=== PATIENT | female | born 1980 | race Caucasian/White ===

== ENCOUNTER 2016-10-23 18:48 | Emergency (ER) | payer OTHER ==
[~2016-10-23] VITALS: Ht 154.9 cm; Wt 59.0 kg
[~2016-10-23 18:48] MED LIST: CORTIZONE-1028 GM TP; ELIMITE60 GM TP; IBUPROFEN 600600 M1 PO; NORCO 5-325 TA1 EACH PO; TROKENDI XR100 MG PO; VALIUM2 MG PO
[2016-10-23] MEDS ORDERED: ZONISAMIDE 100100 M1 PO (19:01)
[2016-10-23] MEDS ORDERED: ZOLOFT50 MG PO (19:02)
[2016-10-23] MEDS ORDERED: PREDNISONE 20 M20 MG PO (19:49)
[2016-10-23 20:14] VITALS: BP 121/81
== END 2016-10-23 20:15 | disposition home or self-care (01) ==
LOC: ER 18:48
DX: R21 Rash and other nonspecific skin eruption (principal); F32.9 Major depressive disorder, single episode, unspecified; F41.9 Anxiety disorder, unspecified; F17.210 Nicotine dependence, cigarettes, uncomplicated; F15.10 Other stimulant abuse, uncomplicated; Z88.0 Allergy status to penicillin

== ENCOUNTER 2016-11-30 10:19 | Emergency (ER) | payer OTHER ==
[~2016-11-30] VITALS: Ht 154.9 cm; Wt 63.5 kg
[~2016-11-30 10:19] MED LIST changes: +PREDNISONE 20 M20 MG PO; +ZOLOFT50 MG PO; +ZONISAMIDE 100100 M1 PO
[2016-11-30] MEDS ORDERED: MOBIC15 MG PO (11:44)
[2016-11-30] MEDS ORDERED: KEFLEX500 MG PO (11:44)
[2016-11-30] MEDS ORDERED: DOXYCYCLINE 10100 MG PO (12:02)
[2016-11-30 12:13] VITALS: BP 109/72
== END 2016-11-30 12:14 | disposition home or self-care (01) ==
LOC: ER 10:19
DX: L03.115 Cellulitis of right lower limb (principal); F41.9 Anxiety disorder, unspecified; F32.9 Major depressive disorder, single episode, unspecified; F17.210 Nicotine dependence, cigarettes, uncomplicated; Z88.0 Allergy status to penicillin

== ENCOUNTER 2017-05-12 12:14 | Emergency (ER) | payer OTHER ==
[~2017-05-12] VITALS: Ht 154.9 cm; Wt 81.7 kg
[~2017-05-12 12:14] MED LIST changes: +DOXYCYCLINE 10100 MG PO; +KEFLEX500 MG PO; +MOBIC15 MG PO
[2017-05-12] MEDS ORDERED: ABILIFY10 MG PO (12:17)
[2017-05-12] MEDS ORDERED: CELEXA40 MG PO (12:17)
[2017-05-12] MEDS ORDERED: ZONEGRAN 25 MG25 M1 PO (12:18)
[2017-05-12] MEDS ORDERED: CYCLOBENZAPRINE5 MG PO (14:31)
[2017-05-12] MEDS ORDERED: PREDNISONE 20 M20 MG PO (14:31)
[2017-05-12] MEDS ORDERED: MOBIC7.5 MG PO (14:31)
== END 2017-05-12 14:50 | disposition home or self-care (01) ==
LOC: ER 12:14
DX: M54.12 Radiculopathy, cervical region (principal); R20.2 Paresthesia of skin; M25.512 Pain in left shoulder; F41.9 Anxiety disorder, unspecified; F32.9 Major depressive disorder, single episode, unspecified; Z88.0 Allergy status to penicillin; F17.210 Nicotine dependence, cigarettes, uncomplicated

== ENCOUNTER → 2017-06-23 | Outpatient (CLI) | payer OTHER ==
[~2017-06-23] MED LIST changes: +ABILIFY10 MG PO; +CELEXA40 MG PO; +CYCLOBENZAPRINE5 MG PO; +MOBIC7.5 MG PO; +ZONEGRAN 25 MG25 M1 PO
== END ==
LOC: MRI 10:12 → EDSTATUS 13:33 → MRI 14:51
DX: M47.22 Other spondylosis with radiculopathy, cervical region (principal); M48.02 Spinal stenosis, cervical region; M25.78 Osteophyte, vertebrae

== ENCOUNTER 2017-12-22 08:48 | Emergency (ER) | payer OTHER ==
[~2017-12-22] VITALS: Ht 154.9 cm; Wt 79.4 kg
[2017-12-22 09:08] LABS: URINE BILIRUBIN NEGATIVE (Negative); URINE BLOOD TRACE (Negative); URINE CLARITY CLEAR; URINE COLOR YELLOW; URINE GLUCOSE-RANDOM* NEGATIVE (Negative); URINE KETONES NEGATIVE (Negative); URINE LEUKOCYTES-REFLEX NEGATIVE (Negative); URINE NITRITE-REFLEX NEGATIVE (Negative); URINE PROTEIN (DIPSTICK) TRACE (Negative); URINE SPECIFIC GRAVITY >= 1.030 (1.005-1.035); URINE UROBILINOGEN 0.2 E.U./dl (0.2-1.0)
[2017-12-22 09:15] LABS: ABSOLUTE NEUTROPHILS 4.5 thou/uL (1.4-8.2); BASOPHILS 0.6 % (0.0-2.0); EOSINOPHILS 2.3 % (0.0-3.0); HEMATOCRIT 38.9 % (37.0-47.0); HEMOGLOBIN 13.8 gm/dL (12.0-15.0); LYMPHOCYTES 37.5 % (24.0-44.0); MCH 33.2 pg (26.0-34.0); MCHC 35.4 g/dL (28.0-37.0); MCV 93.7 fL (80.0-100.0); MONOCYTES 5.6 % (1.0-8.0); PLATELET COUNT 333 thou/uL (150-400); RBC 4.15 mil/uL (4.20-5.00); RDW 13.1 % (10.5-14.5); WBC 8.4 thou/uL (4.0-11.0)
[2017-12-22 09:21] LABS: AMP/METHAMP Negative (Negative); BARBITURATES Negative (Negative); BENZODIAZEPINES Negative (Negative); COCAINE Negative (Negative); METHADONE Negative (Negative); OPIATES Negative (Negative); PCP Negative (Negative)
[2017-12-22 09:23] LABS: CALCIUM 9.3 mg/dL (8.5-10.1); CREATININE 0.8 mg/dL (0.6-1.0); POTASSIUM 3.6 mmol/L (3.5-5.1)
[2017-12-22 09:39] VITALS: BP 110/66
== END 2017-12-22 09:48 | disposition home or self-care (01) ==
LOC: ER 08:48
PROVIDERS: Physician Assistant
DX: R56.9 Unspecified convulsions (principal); Z91.14 Patient's other noncompliance with medication regimen; F17.210 Nicotine dependence, cigarettes, uncomplicated; F32.9 Major depressive disorder, single episode, unspecified; F41.9 Anxiety disorder, unspecified; Z88.0 Allergy status to penicillin

== ENCOUNTER 2020-04-01 11:47 | Emergency (ER) | payer OTHER ==
[~2020-04-01] VITALS: Ht 154.9 cm; Wt 74.4 kg
[2020-04-01] MEDS ORDERED: BRIVIACT50 MG PO (12:42)
[2020-04-01 13:09] LABS: URINE BILIRUBIN NEGATIVE (Negative); URINE BLOOD NEGATIVE (Negative); URINE CLARITY CLEAR; URINE COLOR YELLOW; URINE GLUCOSE-RANDOM* NEGATIVE (Negative); URINE KETONES NEGATIVE (Negative); URINE LEUKOCYTES-REFLEX NEGATIVE (Negative); URINE NITRITE-REFLEX NEGATIVE (Negative); URINE PROTEIN (DIPSTICK) 1+ (Negative); URINE SPECIFIC GRAVITY 1.015 (1.005-1.035); URINE UROBILINOGEN 0.2 E.U./dl (0.2-1.0)
[2020-04-01 13:17] LABS: AMP/METHAMP Negative (Negative); BARBITURATES Negative (Negative); BENZODIAZEPINES Negative (Negative); COCAINE Negative (Negative); METHADONE Negative (Negative); OPIATES Negative (Negative); PCP Negative (Negative)
[2020-04-01 13:21] LABS: MUCUS 0-3 Light strn/LPF (None Seen); SQUAMOUS 0-3 Few /LPF (0-3)
[2020-04-01 13:22] LABS: CASTS None Seen /LPF (None Seen); CRYSTALS None Seen /LPF (None Seen)
[2020-04-01 13:23] LABS: BACTERIA-REFLEX 1-9 Few /HPF (None Seen); URINE RBC 0-2 Rare /HPF (0-2); URINE WBC-REFLEX 0-5 Rare /HPF (0-5)
[2020-04-01 13:27] LABS: ABSOLUTE NEUTROPHILS 9.8 thou/uL (1.4-8.2); BASOPHILS 0.5 % (0.0-2.0); EOSINOPHILS 0.6 % (0.0-3.0); HEMATOCRIT 41.8 % (37.0-47.0); HEMOGLOBIN 13.9 gm/dL (12.0-15.0); LYMPHOCYTES 17.6 % (24.0-44.0); MCHC 33.2 g/dL (28.0-37.0); MCV 96.6 fL (80.0-100.0); MONOCYTES 5.5 % (1.0-8.0); PLATELET COUNT 361 thou/uL (150-400); POLYS 75.8 % (36.0-66.0); RBC 4.32 mil/uL (4.20-5.00); RDW 13.2 % (10.5-14.5); WBC 12.9 thou/uL (4.0-11.0)
[2020-04-01 13:36] LABS: CALCIUM 9.8 mg/dL (8.5-10.1); CREATININE 0.8 mg/dL (0.6-1.0); POTASSIUM 4.3 mmol/L (3.5-5.1)
[2020-04-01 14:37] VITALS: BP 118/83
== END 2020-04-01 14:37 | disposition home or self-care (01) ==
LOC: ER 11:47
PROVIDERS: Nurse Practitioner
DX: R56.9 Unspecified convulsions (principal); F17.210 Nicotine dependence, cigarettes, uncomplicated; Z79.899 Other long term (current) drug therapy; Z88.0 Allergy status to penicillin

== ENCOUNTER → 2020-04-23 | Outpatient (CLI) | payer OTHER ==
[~2020-04-23] MED LIST changes: +BRIVIACT50 MG PO
--- NOTE | 2020-04-24 12:30 | EEG ---
[facility] [place] [address] ELECTROENCEPHALOGRAM Name: CHRIS GONZALEZ Room #: REG CLINT Layla#: [id number] Admission: 04/23/20 Attend Phys: Lo Clarke DO Discharge: Date of : 84 Report #: [id number] THIS REPORT FOR: //name// DATE OF SERVICE: 04/23/2020 This patient has a history of seizure and the patient is on seizure medications for that. EEG was done by placing the electrode by standard 10-20 system of electrode placement. Both referential and sequential montages were used for recording. Background activity in this patient's EEG is about 11 Hz and 30 microvolt. It is a symmetrical activity. Photic stimulation is unremarkable. The patient had paroxysmal slowing, but that appeared to be related to drowsiness, but one episode is suspicious because there is also sharper activity noticed there. Hyperventilation was not carried out. The patient went to sleep that is associated with bilateral symmetrical sleep spindle and vertex sharp waves. IMPRESSION: This patient's EEG demonstrates paroxysmal slowing, which is probably related to drowsiness. However, one episode is suspicious because sharper activity is also present during that episode. If strong clinical correlation is present that may represent seizure, but either strong clinical correlation need to be present or the patient need to be further worked up by prolonged EEG, etc. Thank you very much for this referral. <ELECTRONICALLY SIGNED> By: Daniel Sarmiento MD 04/24/20 1230 [id number] Daniel Sarmiento MD /ivan
== END ==
LOC: NEURO 10:13
PROVIDERS: ATTEND Psychiatry & Neurology Neurology
DX: G40.309 Generalized idiopathic epilepsy and epileptic syndromes, not intractable, without status epilepticus (principal)